=== PATIENT | female | born 1955 | race Caucasian/White ===

== ENCOUNTER 2016-05-24 20:03 | Emergency (ER) | payer OTHER ==
[~2016-05-24] VITALS: Ht 177.8 cm; Wt 102.1 kg
[2016-05-24 21:15] LABS: HEMATOCRIT 43.2 % (36.0-46.0); MCH 29.5 PG (29.0-34.0); MCHC 32.9 G/DL (30.0-36.0); MCV 89.8 FL (83-99); MEAN PLAT.VOLUME 9.5 uM^3 (9.5-12.4); PLATELET COUNT 270 K/uL (156-360); RBC DIS.WIDTH-CV 13.2 % (11.8-14.6); RBC DIS.WIDTH-SD 42.8 % (39-53); RED BLOOD COUNT 4.81 M/uL (3.80-5.20); WHITE BLOOD COUNT 6.9 K/uL (4.1-10.2)
[2016-05-24 21:27] LABS: CHLORIDE 106 mEq/L (99-109); SODIUM 142 mEq/L (136-147)
[2016-05-24 21:29] LABS: GLUCOSE 141 mg/dL (70-99)
[2016-05-24 21:30] LABS: ANION GAP 9 MEQ/L (2-14)
[2016-05-24 21:32] LABS: GFR ESTIMATE (CALCULATED) > 59 mL/min/
[2016-05-24 21:33] LABS: UREA NITROGEN (BUN) 13 mg/dL (9-23)
[2016-05-24 21:38] LABS: TROP-I INTERPRETATION NEGATIVE; TROPONIN-I 0.02 ng/mL (0.0-0.30)
[2016-05-25 01:42] LABS: TROP-I INTERPRETATION NEGATIVE; TROPONIN-I < 0.01 ng/mL (0.0-0.30)
[2016-05-25 02:15] VITALS: BP 167/87
== END 2016-05-25 02:25 | disposition left against medical advice (07) ==
LOC: EME 20:03
PROVIDERS: Emergency Medicine
DX: R07.9 Chest pain, unspecified (principal); M54.9 Dorsalgia, unspecified; R06.00 Dyspnea, unspecified; F17.200 Nicotine dependence, unspecified, uncomplicated
CPT/HCPCS: 71020; 80048; 84484; 85027; 93005; 99281; 99285

== ENCOUNTER 2016-08-15 09:42 | Inpatient (IN) | payer OTHER ==
[~2016-08-15] VITALS: Ht 177.8 cm; Wt 101.0 kg
[~2016-08-15 09:42] MED LIST: AMLODIPINE BESYL5 MG PO; ASPIR-LOW81 MG PO; BENAZEPRIL HCL40 MG PO; CALCIUM + D SO1 EACH PO; FISH OIL WITH1 EACH PO; MIRALAX17 GM PO; VITAMIN D400 UNI1 PO; VITAMIN E400 UNIT PO
[2016-08-15 10:35] LABS: HEMATOCRIT 44.2 % (36.0-46.0); MCH 29.3 PG (29.0-34.0); MCHC 32.1 G/DL (30.0-36.0); MCV 91.1 FL (83-99); MEAN PLAT.VOLUME 9.6 uM^3 (9.5-12.4); PLATELET COUNT 238 K/uL (156-360); RBC DIS.WIDTH-SD 43.8 % (39-53); RED BLOOD COUNT 4.85 M/uL (3.80-5.20); WHITE BLOOD COUNT 5.1 K/uL (4.1-10.2)
[2016-08-15 10:58] LABS: PTT 25.4 (25-32)
[2016-08-15 21:01] LABS: HEMATOCRIT 45.7 % (36.0-46.0); MCH 29.9 PG (29.0-34.0); MCHC 32.2 G/DL (30.0-36.0); MCV 92.9 FL (83-99); MEAN PLAT.VOLUME 9.9 uM^3 (9.5-12.4); PLATELET COUNT 237 K/uL (156-360); RBC DIS.WIDTH-CV 13.2 % (11.8-14.6); RBC DIS.WIDTH-SD 44.8 % (39-53); RED BLOOD COUNT 4.92 M/uL (3.80-5.20)
[2016-08-15 21:09] VITALS: BP 117/75
[2016-08-15 21:20] LABS: ALKALINE PHOSPHATASE 96 IU/L (3-129); ANION GAP 6 MEQ/L (2-14); CHLORIDE 108 MEQ/L (99-109); GFR ESTIMATE (CALCULATED) > 59 mL/min/; GLUCOSE 121 mg/dL (70-99); POTASSIUM 3.7 MEQ/L (3.7-5.4); SAMPLE HEMOLYSIS CHECK 0; SAMPLE ICTERIC CHECK 0; SAMPLE LIPEMIA CHECK 0; SODIUM 142 MEQ/L (136-147); TOTAL BILIRUBIN 0.4 MG/DL (0.0-1.0); UREA NITROGEN (BUN) 12 mg/dL (9-23)
[2016-08-15 21:31] LABS: WHITE BLOOD COUNT 7.4 K/uL (4.1-10.2)
[2016-08-16 00:19] VITALS: BP 105/71
[2016-08-16 03:33] VITALS: BP 95/60
[2016-08-16 07:06] LABS: HEMATOCRIT 41.6 % (36.0-46.0); MCH 29.7 PG (29.0-34.0); MCHC 31.7 G/DL (30.0-36.0); MCV 93.5 FL (83-99); MEAN PLAT.VOLUME 9.9 uM^3 (9.5-12.4); PLATELET COUNT 210 K/uL (156-360); RBC DIS.WIDTH-CV 13.2 % (11.8-14.6); RED BLOOD COUNT 4.45 M/uL (3.80-5.20); WHITE BLOOD COUNT 5.3 K/uL (4.1-10.2)
[2016-08-16 07:30] LABS: ANION GAP 5 MEQ/L (2-14); CHLORIDE 107 MEQ/L (99-109); GFR ESTIMATE (CALCULATED) > 59 mL/min/; GLUCOSE 94 mg/dL (70-99); POTASSIUM 4.1 MEQ/L (3.7-5.4); SAMPLE HEMOLYSIS CHECK 0; SAMPLE ICTERIC CHECK 0; SAMPLE LIPEMIA CHECK 0; SODIUM 140 MEQ/L (136-147); UREA NITROGEN (BUN) 11 mg/dL (9-23)
[2016-08-16 08:17] VITALS: BP 97/67
== END 2016-08-16 15:53 | disposition home or self-care (01) | DRG 201 ==
LOC: OPR 09:42 → EDSTATUS 10:00 → 2SOUTH 18:06 → 2EAST 18:06
PROVIDERS: Hospitalist; Radiology Diagnostic Radiology
DX: J93.9 Pneumothorax, unspecified (principal); R91.1 Solitary pulmonary nodule; K80.20 Calculus of gallbladder without cholecystitis without obstruction; K76.0 Fatty (change of) liver, not elsewhere classified; E78.5 Hyperlipidemia, unspecified; Z87.891 Personal history of nicotine dependence
CPT/HCPCS: 49405; 71010; 77012; 80048; 80053; 85027; 85610; 85730; 88305; 88312; 88342 TC; 94799; 99202; C1729; C1769; J2405; J3010

== ENCOUNTER 2016-11-20 16:18 | Inpatient (IN) | payer OTHER ==
[~2016-11-20] VITALS: Ht 177.8 cm; Wt 102.1 kg
[2016-11-20 18:10] LABS: EOSINOPHIL (%) 2.4 % (0-5); EOSINOPHIL COUNT 0.1 K/uL (0-0.3); HEMATOCRIT 42.5 % (36.0-46.0); IMMATURE GRANULOCYTE (%) 0.4 % (0.0-0.7); INSTRUMENT ABS NEUTROPHIL CT 3.1 K/uL; LYMPHOCYTE COUNT 1.1 K/uL (1.0-2.8); MCH 30.1 PG (29.0-34.0); MCHC 33.2 G/DL (30.0-36.0); MCV 90.6 FL (83-99); MEAN PLAT.VOLUME 10.2 uM^3 (9.5-12.4); MONOCYTE (%) 10.5 % (3-12); MONOCYTE COUNT 0.5 K/uL (0-0.8); NEUTROPHIL (%) 63.2 % (45-76); NEUTROPHIL COUNT 3.1 K/uL (1.8-6.4); PLATELET COUNT 243 K/uL (156-360); RBC DIS.WIDTH-SD 42.7 % (39-53); RED BLOOD COUNT 4.69 M/uL (3.80-5.20)
[2016-11-20 18:11] LABS: ADD MIUA? YES; BILIRUBIN NEGATIVE; BLOOD NEGATIVE; COLOR YELLOW ((YELLOW)); GLUCOSE (STRIP) NEGATIVE; KETONES NEGATIVE; LEUKOCYTES NEGATIVE; NITRITE NEGATIVE; PROTEIN (STRIP) NEGATIVE; SPECIFIC GRAVITY 1.014 (1.000-1.030); UROBILINOGEN 0.2 MG/DL (0.2-1.0)
[2016-11-20 18:20] LABS: CHLORIDE 106 mEq/L (99-109); POTASSIUM 4.1 mEq/L (3.7-5.4); SODIUM 139 mEq/L (136-147)
[2016-11-20 18:22] LABS: GLUCOSE 138 mg/dL (70-99)
[2016-11-20 18:23] LABS: ANION GAP 9 MEQ/L (2-14)
[2016-11-20 18:24] LABS: TOTAL BILIRUBIN 1.3 mg/dL (0.0-1.0)
[2016-11-20 18:25] LABS: ALKALINE PHOSPHATASE 234 IU/L (3-129); GFR ESTIMATE (CALCULATED) > 59 mL/min/
[2016-11-20 18:26] LABS: BACTERIA RARE /HPF; EPITHELIAL CELLS RARE /HPF; MUCUS TRACE /LPF; RED BLOOD CELLS 0-5 /HPF (0-5); WHITE BLOOD CELLS 0-5 /HPF (0-5)
[2016-11-20 18:27] LABS: UREA NITROGEN (BUN) 11 mg/dL (9-23)
[2016-11-20 18:29] LABS: LIPASE 63 U/L (1.0-51.0)
[2016-11-20] MEDS ORDERED: B COMPLEX #11 EACH PO (19:52)
[2016-11-20] MEDS ORDERED: SIMVASTATIN20 MG PO (19:52)
[2016-11-20 22:33] VITALS: BP 118/72
[2016-11-21 00:16] VITALS: BP 104/63
[2016-11-21 04:34] VITALS: BP 101/63
[2016-11-21 05:38] LABS: EOSINOPHIL COUNT 0.3 K/uL (0-0.3); IMMATURE GRANULOCYTE (%) 0.4 % (0.0-0.7); INSTRUMENT ABS NEUTROPHIL CT 2.5 K/uL; LYMPHOCYTE COUNT 1.6 K/uL (1.0-2.8); MCH 30.3 PG (29.0-34.0); MCHC 32.4 G/DL (30.0-36.0); MCV 93.4 FL (83-99); MEAN PLAT.VOLUME 10.2 uM^3 (9.5-12.4); MONOCYTE (%) 13.1 % (3-12); MONOCYTE COUNT 0.7 K/uL (0-0.8); NEUTROPHIL (%) 49.7 % (45-76); NEUTROPHIL COUNT 2.5 K/uL (1.8-6.4); PLATELET COUNT 227 K/uL (156-360); RBC DIS.WIDTH-CV 13.2 % (11.8-14.6); RBC DIS.WIDTH-SD 45.7 % (39-53); RED BLOOD COUNT 4.39 M/uL (3.80-5.20)
[2016-11-21 06:04] LABS: ALKALINE PHOSPHATASE 187 IU/L (3-129); ANION GAP 6 MEQ/L (2-14); CHLORIDE 110 MEQ/L (99-109); GFR ESTIMATE (CALCULATED) > 59 mL/min/; GLUCOSE 109 mg/dL (70-99); POTASSIUM 3.5 MEQ/L (3.7-5.4); SAMPLE HEMOLYSIS CHECK 0; SAMPLE ICTERIC CHECK 0; SAMPLE LIPEMIA CHECK 0; SODIUM 143 MEQ/L (136-147); TOTAL BILIRUBIN 1.2 MG/DL (0.0-1.0); UREA NITROGEN (BUN) 8 mg/dL (9-23)
[2016-11-21 09:27] VITALS: BP 118/83
[2016-11-21 12:06] VITALS: BP 119/69
[2016-11-21 20:21] VITALS: BP 167/85
[2016-11-21 23:42] VITALS: BP 119/72
[2016-11-22 03:39] VITALS: BP 116/77
[2016-11-22 06:34] LABS: EOSINOPHIL COUNT 0.3 K/uL (0-0.3); IMMATURE GRANULOCYTE (%) 0.4 % (0.0-0.7); INSTRUMENT ABS NEUTROPHIL CT 2.1 K/uL; LYMPHOCYTE COUNT 1.8 K/uL (1.0-2.8); MCH 30.4 PG (29.0-34.0); MCHC 32.8 G/DL (30.0-36.0); MCV 92.8 FL (83-99); MEAN PLAT.VOLUME 10.3 uM^3 (9.5-12.4); MONOCYTE (%) 9.5 % (3-12); MONOCYTE COUNT 0.4 K/uL (0-0.8); NEUTROPHIL (%) 45.6 % (45-76); NEUTROPHIL COUNT 2.1 K/uL (1.8-6.4); PLATELET COUNT 214 K/uL (156-360); RBC DIS.WIDTH-CV 13.4 % (11.8-14.6); RBC DIS.WIDTH-SD 46.1 % (39-53); RED BLOOD COUNT 4.31 M/uL (3.80-5.20); WHITE BLOOD COUNT 4.7 K/uL (4.1-10.2)
[2016-11-22 07:13] LABS: ALKALINE PHOSPHATASE 174 IU/L (3-129); ANION GAP 8 MEQ/L (2-14); CHLORIDE 109 MEQ/L (99-109); GFR ESTIMATE (CALCULATED) > 59 mL/min/; GLUCOSE 99 mg/dL (70-99); POTASSIUM 3.9 MEQ/L (3.7-5.4); SAMPLE HEMOLYSIS CHECK 0; SAMPLE ICTERIC CHECK 0; SAMPLE LIPEMIA CHECK 0; SODIUM 144 MEQ/L (136-147); TOTAL BILIRUBIN 0.6 MG/DL (0.0-1.0); UREA NITROGEN (BUN) 6 mg/dL (9-23)
[2016-11-22 08:31] VITALS: BP 128/80
[2016-11-22 11:24] VITALS: BP 137/82
[2016-11-22] MEDS ORDERED: ZOFRAN ODT4 MG PO (17:59)
[2016-11-22] MEDS ORDERED: PERCOCET 5/31 TABLET PO (17:59)
== END 2016-11-22 19:11 | disposition home or self-care (01) | DRG 419 ==
LOC: EME 16:18 → EDOF 20:19 → 3EAST 20:19 → ENRESERV 20:27 → 3EAST 21:28
PROVIDERS: Hospitalist; Nurse Practitioner Adult Health; Physician Assistant
PROC: 0FT44ZZ Resection of Gallbladder, Percutaneous Endoscopic Approach (ICD-10-PCS; principal; 2016-11-22)
DX: K80.65 Calculus of gallbladder and bile duct with chronic cholecystitis with obstruction (principal); I10 Essential (primary) hypertension; E78.5 Hyperlipidemia, unspecified; K21.9 Gastro-esophageal reflux disease without esophagitis; Z87.891 Personal history of nicotine dependence; Z79.82 Long term (current) use of aspirin
CPT/HCPCS: 74181; 76705; 80053; 81003; 83605; 83690; 85025; 87040; 88304; J0330; J0690; J0696; J1100; J1170; J1885; J2250; J2405; J2710; J3010; J7030; J7050; S0028